=== PATIENT | female | born 1945 | race Caucasian/White ===

== ENCOUNTER 2018-01-09 13:56 | Outpatient (CLI) | payer OTHER, MEDICAID ==
[~2018-01-09 13:56] MED LIST: [UNRECOGNIZED DRUG - REMARK] PO
== END 2018-01-09 21:48 | disposition home or self-care (01) ==
LOC: SMA 13:56
PROVIDERS: ATTEND Family Medicine
DX: Z12.31 Encounter for screening mammogram for malignant neoplasm of breast (principal)
CPT/HCPCS: 77067

== ENCOUNTER 2024-04-30 00:29 | Emergency (ER) | payer OTHER, MEDICAID ==
[~2024-04-30] VITALS: Ht 149.9 cm; Wt 38.6 kg
[2024-04-30 00:38] VITALS: BP_SYST 138; PULSE 81; RESP 16; TEMP 97.6; O2SAT 99
== END 2024-04-30 01:20 | disposition home or self-care (01) ==
LOC: SED 00:29
DX: S01.01XA Laceration without foreign body of scalp, initial encounter (principal); R51.9 Headache, unspecified; I10 Essential (primary) hypertension; Z88.0 Allergy status to penicillin; Z79.82 Long term (current) use of aspirin; Z79.899 Other long term (current) drug therapy; W18.39XA Other fall on same level, initial encounter; Y93.89 Activity, other specified; Y92.89 Other specified places as the place of occurrence of the external cause; Y99.8 Other external cause status
CPT/HCPCS: 70450-TC; 99284

== ENCOUNTER 2024-05-04 16:08 | Inpatient (IN) | payer OTHER, MEDICAID ==
[~2024-05-04] VITALS: Ht 144.8 cm; Wt 38.6 kg
[2024-05-04 16:51] VITALS: BP_SYST 130; PULSE 103; RESP 16; TEMP 97.6; O2SAT 99
[2024-05-04] MEDS: NACL 0.9% 1,000 ML IV ONE ×2 (19:15→22:28)
[2024-05-04 20:51] LABS: BASOPHILS % (AUTO) 0.1 % (0.0-2.0); HEMATOCRIT 33.3 % (36-48); HEMOGLOBIN 11.3 g/dL (12.0-16.0); LYMPHOCYTES # (AUTO) 0.4 K/uL (1.0-5.5); LYMPHOCYTES % (AUTO) 2.7 % (20.5-51.5); MEAN CORPUSCULAR HEMOGLOBIN 29 pg (27-31); MEAN CORPUSCULAR HGB CONC 34 % (32-36); MEAN CORPUSCULAR VOLUME 85 fL (79.0-98.0); MONOCYTES # (AUTO) 1.1 K/uL (0.0-1.0); NEUTROPHILS # (AUTO) 14.7 K/uL (1.8-7.7); NEUTROPHILS % (AUTO) 90.2 % (40.0-70.0); PLATELET COUNT (AUTO) 214 K/uL (130-430); RED CELL DISTRIBUTION WIDTH 15.7 % (9.0-15.0); WHITE BLOOD COUNT (AUTO) 16.3 K/uL (4.8-10.8)
[2024-05-04 21:29] LABS: ALANINE AMINOTRANSFERASE 22 U/L (12-78); ALBUMIN 2.1 g/dL (3.4-4.8); ANION GAP 5 (5-15); ASPARTATE AMINOTRANSFERASE 32 U/L (10-37); BILIRUBIN,DIRECT 0.3 mg/dL (0.0-0.3); CALCIUM 8.5 mg/dL (8.4-11.0); CARBON DIOXIDE 27 mmol/L (23-29); CHLORIDE 97 mmol/L (98-107); CREATININE 0.81 mg/dL (0.55-1.30); GLUCOSE 90 mg/dL (74-106); POTASSIUM 3.9 mmol/L (3.5-5.1); SODIUM SERUM 129 mmol/L (136-145); TOTAL BILIRUBIN 0.7 mg/dL (0.0-1.0); UREA NITROGEN, BLOOD 33 mg/dL (8-21)
[2024-05-04] MEDS ORDERED: ROSU40TA PO (21:39)
[2024-05-04] MEDS ORDERED: ASPI-1155 PO (21:39)
[2024-05-04] MEDS ORDERED: LISI20TA30 PO (21:39)
[2024-05-04] MEDS ORDERED: AMLO5TAB4 PO (21:46)
[2024-05-05] VITALS (10 sets, daily range): BP systolic 138–151; PULSE 63–102; RESP 16–20; TEMP 96.5–98.1; O2SAT 93–100
[2024-05-05 01:32] LABS: BILIRUBIN,URINE 1+ (NEGATIVE); BLOOD, URINE 1+ (NEGATIVE); COLOR,URINE YELLOW (YELLOW); GLUCOSE,URINE NEGATIVE (NEGATIVE); KETONES,URINE 1+ (NEGATIVE); LEUKOCYTE ESTERASE ,URINE 1+ (NEGATIVE); NITRITE, URINE NEGATIVE (NEGATIVE); PROTEIN URINE 1+ (NEGATIVE); UROBILINOGEN,URINE 0.2 (0.2-1.0)
[2024-05-05 01:42] LABS: CLARITY/URINE CLOUDY (CLEAR)
[2024-05-05 01:44] LABS: BACTERIA,URINE MANY /HPF (None Seen); WBC,URINE >100 /HPF (0-3)
[2024-05-05] MEDS ORDERED: CEFEPIME 1 GM/VIAL (MAXIPIME) ONE (02:29)
[2024-05-05] MEDS: CEFEPIME 1 GM in D5W 50 ML IV ONE (02:30)
[2024-05-05] MEDS: D5/0.45 NS 1,000 ML IV SCH (04:04)
[2024-05-05] MEDS: cefTRIAXone 1 GM IVPB PREMIX 50 ML IV SCH (09:27)
[2024-05-05] MEDS: AZITHROMYCIN 250 MG in NS 250 ML IV SCH (11:00)
[2024-05-05] MEDS ORDERED: METHYLPREDNISOLONE SOD SUCC 40 MG/ML VIAL IVP ONE (11:00)
[2024-05-05] MEDS: IPRATROPIUM/ALBUTEROL SULFATE 3 ML AMPUL.NEB (DUONEB) INH SCH (11:30)
[2024-05-05] MEDS: NACL 0.9% 1,000 ML IV SCH (12:43)
[2024-05-05] MEDS ORDERED: METHYLPREDNISOLONE SOD SUCC 40 MG/ML VIAL IVP SCH (21:00)
[2024-05-06] VITALS (12 sets, daily range): BP systolic 143–153; PULSE 82–105; RESP 14–20; TEMP 97.6–98.7; O2SAT 95–100
[2024-05-06] MEDS ORDERED: ROSUVASTATIN CALCIUM 5 MG/TAB (CRESTOR) PO SCH (09:00)
[2024-05-06] MEDS: ASPIRIN 81 MG TAB.CHEW PO SCH (09:48)
[2024-05-06] MEDS: ATORVASTATIN 20 MG TABLET PO SCH (09:49)
[2024-05-06] MEDS: amLODIPine BESYLATE 5 MG TABLET PO SCH (09:49)
[2024-05-06] MEDS: lisinopriL 20 MG TABLET PO SCH (09:50)
[2024-05-06] MEDS: cefTRIAXone 1 GM IVPB PREMIX 50 ML IV ONE (09:52)
[2024-05-06 16:10] LABS: BASOPHILS # (AUTO) 0.1 K/uL (0.0-0.2); BASOPHILS % (AUTO) 0.4 % (0.0-2.0); EOSINOPHILS % (AUTO) 0.1 % (0.0-4.0); HEMATOCRIT 29.3 % (36-48); LYMPHOCYTES # (AUTO) 0.6 K/uL (1.0-5.5); LYMPHOCYTES % (AUTO) 4.1 % (20.5-51.5); MEAN CORPUSCULAR HEMOGLOBIN 29 pg (27-31); MEAN CORPUSCULAR HGB CONC 34 % (32-36); MEAN CORPUSCULAR VOLUME 84 fL (79.0-98.0); MONOCYTES # (AUTO) 1.2 K/uL (0.0-1.0); MONOCYTES % (AUTO) 7.8 % (1.7-9.3); NEUTROPHILS # (AUTO) 13.1 K/uL (1.8-7.7); NEUTROPHILS % (AUTO) 87.6 % (40.0-70.0); PLATELET COUNT (AUTO) 209 K/uL (130-430); RED BLOOD CELL COUNT(AUTO) 3.49 MIL/uL (4.2-6.2); RED CELL DISTRIBUTION WIDTH 15.7 % (9.0-15.0)
[2024-05-06 16:32] LABS: ANION GAP 10 (5-15); CALCIUM 7.6 mg/dL (8.4-11.0); CARBON DIOXIDE 21 mmol/L (23-29); CHLORIDE 102 mmol/L (98-107); CREATININE 0.46 mg/dL (0.55-1.30); GLUCOSE 99 mg/dL (74-106); SODIUM SERUM 133 mmol/L (136-145); UREA NITROGEN, BLOOD 12 mg/dL (8-21)
[2024-05-06 16:39] LABS: POTASSIUM 2.9 mmol/L (3.5-5.1)
[2024-05-06] MEDS: KCL 20 mEq in 100 mL (PREMIX) 100 ML IV ONE ×2 (20:09→22:42)
[2024-05-06] MEDS: ACETAMINOPHEN 325 MG TABLET PO PRN (22:43)
[2024-05-07] VITALS (10 sets, daily range): BP systolic 139–151; PULSE 76–101; RESP 16; TEMP 98.4–98.5; O2SAT 93–100
[2024-05-07 08:07] LABS: BASOPHILS # (AUTO) 0.1 K/uL (0.0-0.2); BASOPHILS % (AUTO) 0.4 % (0.0-2.0); HEMATOCRIT 30.2 % (36-48); HEMOGLOBIN 9.9 g/dL (12.0-16.0); LYMPHOCYTES # (AUTO) 0.6 K/uL (1.0-5.5); LYMPHOCYTES % (AUTO) 4.5 % (20.5-51.5); MEAN CORPUSCULAR HEMOGLOBIN 28 pg (27-31); MEAN CORPUSCULAR HGB CONC 33 % (32-36); MEAN CORPUSCULAR VOLUME 86 fL (79.0-98.0); MONOCYTES # (AUTO) 1.2 K/uL (0.0-1.0); MONOCYTES % (AUTO) 8.7 % (1.7-9.3); NEUTROPHILS # (AUTO) 11.8 K/uL (1.8-7.7); NEUTROPHILS % (AUTO) 86.4 % (40.0-70.0); PLATELET COUNT (AUTO) 221 K/uL (130-430); RED BLOOD CELL COUNT(AUTO) 3.51 MIL/uL (4.2-6.2); RED CELL DISTRIBUTION WIDTH 15.9 % (9.0-15.0); WHITE BLOOD COUNT (AUTO) 13.7 K/uL (4.8-10.8)
[2024-05-07 08:20] LABS: ANION GAP 7 (5-15); CALCIUM 7.9 mg/dL (8.4-11.0); CARBON DIOXIDE 24 mmol/L (23-29); CHLORIDE 104 mmol/L (98-107); CREATININE 0.59 mg/dL (0.55-1.30); GLUCOSE 95 mg/dL (74-106); POTASSIUM 4.5 mmol/L (3.5-5.1); SODIUM SERUM 135 mmol/L (136-145); UREA NITROGEN, BLOOD 10 mg/dL (8-21)
[2024-05-07] MEDS: cefTRIAXone 1 GM IVPB PREMIX 50 ML IV SCH (09:48)
[2024-05-07] MEDS ORDERED: MORPHINE 2 MG/ML INJ. SYRINGE IVP PRN (11:00)
[2024-05-07 15:45] LABS: BASOPHILS # (AUTO) 0.1 K/uL (0.0-0.2); BASOPHILS % (AUTO) 0.6 % (0.0-2.0); HEMATOCRIT 31.1 % (36-48); HEMOGLOBIN 10.3 g/dL (12.0-16.0); LYMPHOCYTES # (AUTO) 0.6 K/uL (1.0-5.5); MEAN CORPUSCULAR HEMOGLOBIN 29 pg (27-31); MEAN CORPUSCULAR HGB CONC 33 % (32-36); MEAN CORPUSCULAR VOLUME 87 fL (79.0-98.0); MONOCYTES # (AUTO) 1.2 K/uL (0.0-1.0); MONOCYTES % (AUTO) 8.3 % (1.7-9.3); NEUTROPHILS # (AUTO) 12.7 K/uL (1.8-7.7); NEUTROPHILS % (AUTO) 87.1 % (40.0-70.0); PLATELET COUNT (AUTO) 241 K/uL (130-430); RED BLOOD CELL COUNT(AUTO) 3.58 MIL/uL (4.2-6.2); RED CELL DISTRIBUTION WIDTH 16.1 % (9.0-15.0); WHITE BLOOD COUNT (AUTO) 14.6 K/uL (4.8-10.8)
[2024-05-08] VITALS (7 sets, daily range): BP systolic 129–156; PULSE 80–107; RESP 16–18; TEMP 96.8–98.1; O2SAT 97–99
[2024-05-08] MEDS ORDERED: CIPR250T4 PO (11:26)
== END 2024-05-08 15:35 | disposition home or self-care (01) | DRG 871 ==
LOC: SED 16:08 → SMU 05-05 02:31
PROVIDERS: ADMIT Specialist; ATTEND Specialist
PROC: BW211ZZ Computerized Tomography (CT Scan) of Abdomen and Pelvis using Low Osmolar Contrast (ICD-10-PCS; principal; 2024-05-07)
DX: A41.9 Sepsis, unspecified organism (principal); E43 Unspecified severe protein-calorie malnutrition; N39.0 Urinary tract infection, site not specified; E87.1 Hypo-osmolality and hyponatremia; Z68.1 Body mass index [BMI] 19.9 or less, adult; E86.0 Dehydration; I25.10 Atherosclerotic heart disease of native coronary artery without angina pectoris; I10 Essential (primary) hypertension; E83.52 Hypercalcemia; E78.5 Hyperlipidemia, unspecified; B96.1 Klebsiella pneumoniae [K. pneumoniae] as the cause of diseases classified elsewhere; C26.9 Malignant neoplasm of ill-defined sites within the digestive system; D64.9 Anemia, unspecified; Z79.899 Other long term (current) drug therapy; Z88.8 Allergy status to other drugs, medicaments and biological substances; Z88.0 Allergy status to penicillin
CPT/HCPCS: 36415; 71045; 80048; 80076; 81000; 81001; 81015; 83605; 85025; 86886; 86900; 86901; 87040; 87086; 87186; 92610-GN; 93005; 94640; 94760; 99285; J0456; J0692; J0696; J3480; J7030; J7050; Q9967